=== PATIENT | male | born 1985 | race Caucasian/White ===

== ENCOUNTER 2025-03-11 13:33 | Emergency (ER) | payer OTHER ==
[~2025-03-11] VITALS: Ht 170.2 cm; Wt 102.7 kg
[2025-03-11] MEDS ORDERED: OMEP-173 (13:41)
[2025-03-11 16:12] LABS: BASO # 0.0 10^3/uL (0.0-0.2); BASO % 0.3 % (0.0-1.0); EOS # 0.0 10^3/uL (0.0-0.5); EOS % 0.2 % (0.0-3.0); LYMPH # 1.8 10^3/uL (1.5-5.0); LYMPH % 18.8 % (24.0-44.0); MONO # 0.7 10^3/uL (0.0-0.8); MONO % 7.7 % (2.0-8.0); NEUTROPHILS # 7.0 10^3/uL (1.5-8.5); NEUTROPHILS % 72.7 % (36.0-66.0); PLATELET COUNT, AUTOMATED 323 10^3/uL (150-450)
[2025-03-11 16:43] LABS: ALT/SGPT 66.0 U/L (7.0-40); AST/SGOT 42.0 U/L (<34)
[2025-03-11] MEDS: NS (Normal Saline) 0.9% 1,000 ML IV ONE (18:35)
[2025-03-11 19:23] VITALS: TEMP 97.8
[2025-03-11 19:30] VITALS: BP 148/72
[2025-03-11 19:33] VITALS: O2SAT 97
[2025-03-11] MEDS ORDERED: DICY-61 PO (19:43)
[2025-03-11] MEDS: DICYCLOMINE 10 MG CAP PO ONE (19:52)
[2025-03-11 19:55] LABS: CALCIUM LEVEL 9.3 MG/DL (8.5-10.1); CARBON DIOXIDE LEVEL 29.0 MMOL/L (20-31); CHLORIDE LEVEL 100.0 MMOL/L (98-107); CREATININE FOR GFR 1.22 MG/DL (0.70-1.30); GLOMERULAR FILTRATION RATE 76.9 (>60); POTASSIUM SERUM 4.1 MMOL/L (3.5-5.1); SODIUM LEVEL 139.0 MMOL/L (136-145)
== END 2025-03-11 20:07 | disposition home or self-care (01) ==
LOC: M ED 13:33
DX: R10.9 Unspecified abdominal pain (principal); R03.1 Nonspecific low blood-pressure reading; R79.89 Other specified abnormal findings of blood chemistry; Z79.899 Other long term (current) drug therapy